=== PATIENT | male | born 1950 | race Caucasian/White ===

== ENCOUNTER → 2018-11-29 | Outpatient (REF) | payer MEDICARE, OTHER ==
[2017-04-04 14:22] VITALS: BMI 43.2
[~2018-11-29] MED LIST: ACE325 PO; ASPI-757 PO; CLIN300C99 PO; DOC100 PO; DOCU-202 PO; ESOM20CA31 PO; GAB300 PO; HYDR28.426 TP; IBUP800T37 PO; LAN30PT PO; LORA10CA3 PO; MOM PO; OXY10 PO; PER PO; PHEN100 PO; PHEN100C82 PO; POLY17PO11 PO
== END ==
LOC: ZZSENDIN 17:07
PROVIDERS: ATTEND Family Medicine
DX: D32.9 Benign neoplasm of meninges, unspecified (principal)
CPT/HCPCS: 80185

== ENCOUNTER → 2019-01-17 | Outpatient (REF) | payer MEDICARE, OTHER ==
[2017-04-04 14:22] VITALS: BMI 43.2
== END ==
LOC: ZZSENDIN 16:35
PROVIDERS: ATTEND Family Medicine
DX: D32.0 Benign neoplasm of cerebral meninges (principal)
CPT/HCPCS: 80185